=== PATIENT | female | born 1970 | race Caucasian/White ===

== ENCOUNTER 2017-11-17 13:15 | Outpatient (CLI) ==
[2017-11-17 13:29] VITALS: BP 119/79; TEMP 98.6
[2017-11-17] MEDS ORDERED: PROLIA SUBCUT STA (13:33)
== END 2017-11-17 13:16 | disposition home or self-care (01) ==
LOC: OPMED 13:15
PROVIDERS: ATTEND Nurse Practitioner Family
DX: M81.0 Age-related osteoporosis without current pathological fracture (principal)
CPT/HCPCS: 96372

== ENCOUNTER 2018-06-01 11:22 | Outpatient (CLI) ==
[2018-06-01] MEDS ORDERED: PROLIA SUBCUT STA (11:30)
[2018-06-01 11:32] VITALS: BP 107/72; TEMP 98
== END 2018-06-01 11:23 | disposition home or self-care (01) ==
LOC: OPMED 11:22
PROVIDERS: ATTEND Nurse Practitioner Family
DX: M81.0 Age-related osteoporosis without current pathological fracture (principal)
CPT/HCPCS: 96372

== ENCOUNTER 2018-12-23 09:52 | Outpatient (CLI) ==
[2018-12-23 10:10] VITALS: BP 112/79; TEMP 98.2
[2018-12-23] MEDS: PROLIA SUBCUT STA (10:11)
== END 2018-12-23 09:53 | disposition home or self-care (01) ==
LOC: OPMED 09:52
PROVIDERS: ATTEND Nurse Practitioner Family
DX: M81.0 Age-related osteoporosis without current pathological fracture (principal)
CPT/HCPCS: 96372